=== PATIENT | female | born 1975 | race Caucasian/White ===

== ENCOUNTER 2019-09-04 05:34 | Day surgery (SDC) | payer OTHER, SELFPAY ==
[2019-08-25 17:01] LABS: BASOPHILS % (AUTO) 0.6 % (0.0-2.0); EOSINOPHILS # (AUTO) 0.1 K/uL (0-0.4); EOSINOPHILS % (AUTO) 1.4 % (0.0-4.0); HEMATOCRIT 35.6 % (36-48); HEMOGLOBIN 11.9 g/dL (12.0-16.0); LYMPHOCYTES # (AUTO) 2.1 K/uL (2.5-16.5); LYMPHOCYTES % (AUTO) 32.4 % (20.5-51.1); MEAN CORPUSCULAR HEMOGLOBIN 29 pg (27-31); MEAN CORPUSCULAR HGB CONC 34 g/dL (33-37); MEAN CORPUSCULAR VOLUME 87.4 fL (80-94); MONOCYTES # (AUTO) 0.6 K/uL (0.8-1.0); MONOCYTES % (AUTO) 9.5 % (1.7-9.3); NEUTROPHILS # (AUTO) 3.6 K/uL (1.8-7.7); NEUTROPHILS % (AUTO) 56.1 % (42.2-75.2); PLATELET COUNT (AUTO) 202 K/uL (140-450); RED BLOOD CELL COUNT(AUTO) 4.07 MIL/uL (4.20-5.40); RED CELL DISTRIBUTION WIDTH 19.3 % (11.6-13.7); WHITE BLOOD COUNT (AUTO) 6.4 K/uL (4.8-10.8)
[2019-08-25 17:13] LABS: ANION GAP 12.1 (8-16); CARBON DIOXIDE 29.1 mmol/L (21-32); CREATININE 0.7 mg/dL (0.6-1.3); POTASSIUM 4.2 mmol/L (3.5-5.1); TOTAL BILIRUBIN 0.3 mg/dL (0.0-1.0)
[2019-09-04] MEDS ORDERED: SEVOFLURANE 250 ML BTL INH ONE (07:40)
[2019-09-04] MEDS ORDERED: METOCLOPRAMIDE 10 MG/2 ML INJ VIAL ONE (07:40)
[2019-09-04] MEDS ORDERED: GLYCOPYRROLATE 0.2 MG/ML VIAL ONE (07:40)
[2019-09-04] MEDS ORDERED: DESFLURANE 240 ML BTL INH ONE (07:40)
[2019-09-04] MEDS ORDERED: PROPOFOL 200 MG/20 ML VIAL IV ONE (07:40)
[2019-09-04] MEDS ORDERED: fentaNYL citrate 0.05 MG/ML VIAL ONE (07:40)
[2019-09-04] MEDS ORDERED: ONDANSETRON 4 MG/2 ML VIAL ONE (07:40)
[2019-09-04] MEDS ORDERED: MIDAZOLAM 2 MG/2 ML VIAL ONE (07:40)
[2019-09-04] MEDS ORDERED: LACTATED RINGERS 1,000 ML IV SCH (08:42)
[2019-09-04] MEDS ORDERED: MEPERIDINE 25 MG/ML SYR IVP PRN (08:45)
[2019-09-04] MEDS ORDERED: ONDANSETRON 4 MG/2 ML VIAL IVP PRN (08:45)
[2019-09-04] MEDS ORDERED: diphenhydrAMINE 50 MG/ML VIAL IVP PRN (08:45)
[2019-09-04] MEDS ORDERED: HYDROmorphone 1 MG/ML AMP IVP PRN (08:45)
== END 2019-09-04 09:45 | disposition home or self-care (01) ==
LOC: MDS 05:34 → MFCC 05:35 → MDS 09:45
PROVIDERS: ATTEND Obstetrics & Gynecology
DX: N92.0 Excessive and frequent menstruation with regular cycle (principal); D25.9 Leiomyoma of uterus, unspecified; Z11.59 Encounter for screening for other viral diseases
CPT/HCPCS: 58563; 80053; 81025; 84703; 85025; J2250; J2405; J2704; J2765; J3010; J3490; J7030; J7120; U0003